=== PATIENT | male | born 1960 | race Caucasian/White ===

== ENCOUNTER 2021-03-27 17:35 | Emergency (ER) | payer BC ==
[2021-03-27] MEDS ORDERED: CEPHALEXIN500 M1 PO (18:32)
[2021-03-27 18:56] VITALS: BP 160/96
== END 2021-03-27 19:00 | disposition home or self-care (01) ==
LOC: ED 17:35
DX: S81.811A Laceration without foreign body, right lower leg, initial encounter (principal); W19.XXXA Unspecified fall, initial encounter; W22.01XA Walked into wall, initial encounter; Y92.59 Other trade areas as the place of occurrence of the external cause; Y99.0 Civilian activity done for income or pay